=== PATIENT | female | born 1965 | race Caucasian/White ===

== ENCOUNTER 2018-03-05 13:37 | Emergency (ER) | payer SELFPAY ==
[2018-03-05] MEDS ORDERED: FENTANYL CITR 100 MCG/2 ML ONE (15:21)
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
--- NOTE | 2018-03-05 19:08 | RAD REPORT ---
EXAM DESCRIPTION: Ribs Unil W/CXR - 03/05/2018 3:58 pm CLINICAL HISTORY: Chest trauma, right-sided rib pain COMPARISON: October 2015 FINDINGS: No displaced rib fracture is present. No nondisplaced rib fracture identifiable. No aggressive rib lesion. No underlying pneumothorax, effusion, infiltrate or pulmonary contusion. IMPRESSION: Negative right rib series.
== END 2018-03-05 17:11 | disposition home or self-care (01) ==
LOC: ER 13:37
DX: S22.31XA Fracture of one rib, right side, initial encounter for closed fracture (principal); S09.90XA Unspecified injury of head, initial encounter; Y04.8XXA Assault by other bodily force, initial encounter; Y93.9 Activity, unspecified; Y92.009 Unspecified place in unspecified non-institutional (private) residence as the place of occurrence of the external cause; Z88.5 Allergy status to narcotic agent; F17.210 Nicotine dependence, cigarettes, uncomplicated; F32.9 Major depressive disorder, single episode, unspecified
CPT/HCPCS: 70450; 70486; 71101; 76377; 96372; 99284; J3010

== ENCOUNTER → 2023-11-18 | Emergency (ER) | payer BC ==
[~2023-11-18] MED LIST: ONDANSETRON 4 MG (ODT) TAB ONE
--- NOTE | 2023-11-18 14:11 | RAD REPORT ---
EXAM DESCRIPTION: RAD - Ankle Right 3 View - 11/18/2023 1:59 pm CLINICAL HISTORY: Right ankle pain FINDINGS: Mildly to moderately displaced oblique lateral malleolar fracture with soft tissue swellin g No dislocation
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
--- NOTE | 2023-11-18 14:41 | EDPHYS ---
Physician Documentation [facility] Name: Vinita Mckenzie Age: 58 yrs Sex: Female : 1965 Arrival Date: 11/18/2023 Time: 12:56 Bed 10 Private MD: ED Physician Jameel Milton HPI: 11/18 15:21 This 58 yrs old Female presents to ER via Wheelchair with complaints of Fall Injury, rt Ankle Injury. 15:21 Patient presents to the ED with slip and fall with pain to the right ankle. She states rt that she heard a pop. Denies other injury, head trauma. Denies other acute complaints, pain is aching nature, nonradiating, moderate severity, no other aggravating elevating factors.. Historical: - Allergies: 13:07 No Known Allergies; ph - PMHx: 13:07 Depression; GERD; ph - Immunization history:: Adult Immunizations unknown. - Social history:: Smoking status: Patient denies any tobacco usage or history of. - Family history:: not pertinent. ROS: 15:21 Constitutional: Negative for fever, chills, and weight loss, Cardiovascular: Negative rt for chest pain, palpitations, and edema, Respiratory: Negative for shortness of breath, cough, wheezing, and pleuritic chest pain, Abdomen/GI: Negative for abdominal pain, nausea, vomiting, diarrhea, and constipation, Skin: Negative for injury, rash, and discoloration, Neuro: Negative for headache, weakness, numbness, tingling, and seizure, Psych: Negative for depression, anxiety, suicide ideation, homicidal ideation, and hallucinations, 15:21 MS/extremity: Positive for pain, swelling, Exam: 15:21 Constitutional: This is a well developed, well nourished patient who is awake, alert, rt and in no acute distress. Head/Face: Normocephalic, atraumatic. Chest/axilla: Normal chest wall appearance and motion. Nontender with no deformity. No lesions are appreciated. Cardiovascular: Regular rate and rhythm with a normal S1 and S2. No gallops, murmurs, or rubs. Normal PMI, no JVD. No pulse deficits. Respiratory: Lungs have equal breath sounds bilaterally, clear to auscultation and percussion. No rales, rhonchi or wheezes noted. No increased work of breathing, no retractions or nasal flaring. Abdomen/GI: Soft, non-tender, with normal bowel sounds. No distension or tympany. No guarding or rebound. No evidence of tenderness throughout. Skin: Warm, dry with normal turgor. Normal color with no rashes, no lesions, and no evidence of cellulitis. Neuro: Awake and alert, GCS 15, oriented to person, place, time, and situation. Cranial nerves II-XII grossly intact. Motor strength 5/5 in all extremities. Sensory grossly intact. Cerebellar exam normal. Normal gait. Psych: Awake, alert, with orientation to person, place and time. Behavior, mood, and affect are within normal limits. 15:21 Musculoskeletal/extremity: Swelling with tenderness to the lateral malleolus, no other focal areas of swelling, no other deformities noted. Pulses, motor, sensation are intact, skin is intact. 15:23 Musculoskeletal/extremity: Negative Welch test. rt Vital Signs: 13:05 BP 140 / 93; Pulse 97; Resp 18; Temp 97.9; Pulse Ox 97% on R/A; Weight 69.85 kg; Height ph 5 ft. 4 in. ; 13:05 Body Mass Index 26.43 (69.85 kg, 162.56 cm) ph Procedures: 15:21 Splinting: Splint applied to right ankle using Orthoglass splint, Stirrups with rt posterior short. applied by myself. Examined by me, post splint application: neurovascular intact, 2+ distal pulses palpable, brisk capillary refill noted, Patient tolerated well, No need for reduction, therefore sedation and reduction were deferred. MDM: 13:11 Patient medically screened. rt 15:21 Differential diagnosis: Fracture, sprain, Achilles tendon injury. Data reviewed: vital rt signs, nurses notes, radiologic studies, plain films. I considered the following discharge prescriptions or medication management in the emergency department Medications were administered in the Emergency Department. See MAR. Independent interpretation of the following test(s) in the Emergency Department X-Ray: My interpretation is Distal fibula fracture seen on interpretation of x-ray images. Counseling: I had a detailed discussion with the patient and/or guardian regarding the historical points, exam findings, and any diagnostic results supporting the discharge/admit diagnosis, radiology results, the need for outpatient follow up, to return to the emergency department if symptoms worsen or persist or if there are any questions or concerns that arise at home. Response to treatment: the patient's symptoms have markedly improved after treatment. 11/18 13:18 Order name: Ankle Right 3 View XRAY; Complete Time: 14:13 rt 11/18 13:18 Order name: Foot Right 3 View XRAY; Complete Time: 14:13 rt 11/18 14:38 Order name: Walking boot rt 11/18 14:38 Order name: Crutches rt Administered Medications: 14:52 Drug: Ondansetron Oral Disintegrating Tablet Oral Disintegrating Tablet 4 mg PO once as6 Route: PO; Disposition Summary: 11/18/23 14:41 Discharge Ordered Notes: Location: Home rt Problem: new rt Symptoms: have improved rt Condition: Stable rt Diagnosis - Fracture of right distal fibula rt Followup: rt - With: Christophe Ruff MD - When: 5 - 6 days - Reason: Discharge Instructions: - Discharge Summary Sheet rt - Nondisplaced Fibular Ankle Fracture Treated With Immobilization rt Forms: - Work release form hb - Medication Reconciliation Form rt - Thank You Letter rt - Antibiotic Education rt - Prescription Opioid Use rt - Patient Portal Instructions rt - Leadership Thank You Letter rt Prescriptions: - Tramadol 50 mg Oral tablet - take 1 tablet ORAL route every 8 hours as needed; 18 tablet; Refills: 0, rt Product Selection Permitted Signatures: Dispatcher [employer] Merly Jarrell RN RN Vicente Cool RN RN as6 Jameel Milton MD MD rt Corrections: (The following items were deleted from the chart) 13:08 13:07 Allergies: Codeine; itching; ph ph
[2023-11-18 16:09] VITALS: BP 140/93; TEMP 97.9; O2SAT 97
== END ==
LOC: ER 12:56
PROC: 2W3QX1Z Immobilization of Right Lower Leg using Splint (ICD-10-PCS; principal; 2023-11-18)
DX: S82.891A Other fracture of right lower leg, initial encounter for closed fracture (principal); W01.0XXA Fall on same level from slipping, tripping and stumbling without subsequent striking against object, initial encounter; K21.9 Gastro-esophageal reflux disease without esophagitis; F32.A Depression, unspecified
CPT/HCPCS: 73630; 73610; 29515; Q0162